=== PATIENT | male | born 1960 | race Caucasian/White ===

== ENCOUNTER → 2016-06-19 | Emergency (ER) | payer OTHER ==
[~2016-06-19] VITALS: Ht 182.9 cm; Wt 77.3 kg
[~2016-06-19] MED LIST: CLIN-73 PO; IBUP-1542 PO
[2016-06-19 14:18] VITALS: Ht 182.9 cm; Wt 77.3 kg
[2016-06-19 16:04] VITALS: BP 130/85; PULSE 100; RESP 18; TEMP 98.6
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
== END | disposition home or self-care (01) ==
LOC: E/R 14:14
DX: T68.XXXA Hypothermia, initial encounter (principal); F17.210 Nicotine dependence, cigarettes, uncomplicated; R40.2142 Coma scale, eyes open, spontaneous, at arrival to emergency department; R40.2252 Coma scale, best verbal response, oriented, at arrival to emergency department; R40.2362 Coma scale, best motor response, obeys commands, at arrival to emergency department; X31.XXXA Exposure to excessive natural cold, initial encounter
CPT/HCPCS: 82962; 93005